=== PATIENT | male | born 1995 | race Caucasian/White ===

== ENCOUNTER 2018-01-06 13:43 | Emergency (ER) | payer BC ==
[2018-01-06 13:46] VITALS: BP 146/92
--- NOTE | 2018-01-06 13:48 | ER Report ---
History and Physical Time Seen By MD: 13:47 HPI/ROS CHIEF COMPLAINT: Depression, suicidal ideation HISTORY OF PRESENT ILLNESS: Patient is a 22-year-old male here with complaints of depression which has been worsening over the past week. He is being treated in the outpatient setting with Lamictal, Effexor, Abilify. He reportedly started Effexor last week and was taken off of Zoloft. He has been admitted in the inpatient setting in the past for similar complaints of suicidal ideation and prior attempts with hanging and cutting. He reports that the last time that he was admitted was in [place]. Patient denies alcohol or drug use. Denies significant recent life stressors. REVIEW OF SYSTEMS: Constitutional: No fever, no chills. Eyes: No discharge. ENT: No sore throat. Cardiovascular: No chest pain, no palpitations. Respiratory: No cough, no shortness of breath. Gastrointestinal: No abdominal pain, no vomiting. Genitourinary: No hematuria. Musculoskeletal: No back pain. Skin: No rashes. Neurological: No headache. Psych: SI, Depression, denies HI Allergies: Coded Allergies: No Known Drug Allergies (Unverified , 01/06/18) Home Meds Reported Medications Cetirizine Hcl (ZYRTEC) 10 Mg Capsule, 10 MG PO QDAY, CAPSULE 01/06/18 Cholecalciferol (Vitamin D3) (VITAMIN D3) 1,000 Unit Tablet, 1000 UNIT PO DAILY, TAB 01/06/18 Multivitamin (ONCE DAILY) 1 Each Tablet, 1 EACH PO DAILY 01/06/18 Montelukast Sodium (SINGULAIR) 10 Mg Tablet, 1 TAB PO QDAY, TAB 01/06/18 Lamotrigine (LAMICTAL) 150 Mg Tablet, 150 MG PO DAILY 01/06/18 Aripiprazole (ABILIFY) 10 Mg Tablet, 10 MG PO QDAY, TAB 01/06/18 Venlafaxine Hcl (EFFEXOR XR) 37.5 Mg Cap.er.24h, 37.5 MG PO QDAY 01/06/18 Constitutional Vital Sign - Last 24 Hours 01/06/18 13:46 Temp 97.7 Pulse 78 Resp 16 B/P (MAP) 146/92 Pulse Ox 96 O2 Delivery Room Air Physical Exam General Appearance: The patient is alert, has no immediate need for airway protection and no signs of toxicity. No acute distress, depressed affect [Eyes:] [Pupils equal and round no pallor or injection.] [ENT, Mouth:] [Mucous membranes are moist.] Respiratory: [There are no retractions, lungs are clear to auscultation.] Cardiovascular: [Regular rate and rhythm.] [ ] Gastrointestinal: [Abdomen is soft and non tender, no masses, bowel sounds normal.] [Neurological:] [ ] [Skin:] [Warm and dry, no rashes.] [Musculoskeletal:] [Neck is supple non tender.] [Extremities are nontender, nonswollen and have full range of motion.] [ ] [DIFFERENTIAL DIAGNOSIS: After history and physical exam differential diagnosis was considered for] [ ] Medical Decision Making Data Points Result Diagram: 01/06/18 1403 01/06/18 1403 Laboratory Hematology Test 01/06/18 14:03 01/06/18 14:08 Red Blood Count 5.68 M/uL (4.00-5.60) Mean Corpuscular Volume 87.2 fL (80.0-96.0) Mean Corpuscular Hemoglobin 29.6 pg (26.0-33.0) Mean Corpuscular Hemoglobin Concent 33.9 g/dL (32.0-36.0) Red Cell Distribution Width 14.2 % (11.5-14.5) Mean Platelet Volume 7.3 fL (7.2-11.1) Neutrophils (%) (Auto) 63.3 % (39.4-72.5) Lymphocytes (%) (Auto) 27.5 % (17.6-49.6) Monocytes (%) (Auto) 5.7 % (4.1-12.4) Eosinophils (%) (Auto) 2.6 % (0.4-6.7) Basophils (%) (Auto) 0.9 % (0.3-1.4) Nucleated RBC Relative Count (auto) 0.0 /100WBC Neutrophils # (Auto) 2.9 K/uL (2.0-7.4) Lymphocytes # (Auto) 1.3 K/uL (1.3-3.6) Monocytes # (Auto) 0.3 K/uL (0.3-1.0) Eosinophils # (Auto) 0.1 K/uL (0.0-0.5) Basophils # (Auto) 0.0 K/uL (0.0-0.1) Nucleated RBC Absolute Count (auto) 0.00 K/uL Sodium Level 140 mmol/L (137-145) Potassium Level 3.7 mmol/L (3.5-5.0) Chloride Level 102 mmol/L (98-107) Carbon Dioxide Level 30 mmol/L (22-30) Blood Urea Nitrogen 16 mg/dl (9-21) Creatinine 1.00 mg/dl (0.66-1.25) Glomerular Filtration Rate Calc > 60.0 Random Glucose 95 mg/dl (75-110) Calcium Level 9.7 mg/dl (8.4-10.2) Magnesium Level 1.9 mg/dl (1.7-2.2) Total Bilirubin 0.3 mg/dl (0.2-1.3) Aspartate Amino Transf (AST/SGOT) 36 U/L (0-35) Alanine Aminotransferase (ALT/SGPT) 59 U/L (0-56) Alkaline Phosphatase 61 U/L (0-126) Total Protein 7.6 g/dl (6.3-8.2) Albumin 4.5 g/dl (3.5-5.0) Salicylates Level < 10 mg/L Salicylate Last Dose Date unknown Acetaminophen Level < 10 ug/ml Serum Alcohol < 10 mg/dl Chemistry Test 01/06/18 14:03 01/06/18 14:08 White Blood Count 4.5 k/uL (4.5-11.0) Red Blood Count 5.68 M/uL (4.00-5.60) Hemoglobin 16.8 g/dL (14.0-18.0) Hematocrit 49.6 % (42.0-52.0) Mean Corpuscular Volume 87.2 fL (80.0-96.0) Mean Corpuscular Hemoglobin 29.6 pg (26.0-33.0) Mean Corpuscular Hemoglobin Concent 33.9 g/dL (32.0-36.0) Red Cell Distribution Width 14.2 % (11.5-14.5) Platelet Count 224 K/uL (150-450) Mean Platelet Volume 7.3 fL (7.2-11.1) Neutrophils (%) (Auto) 63.3 % (39.4-72.5) Lymphocytes (%) (Auto) 27.5 % (17.6-49.6) Monocytes (%) (Auto) 5.7 % (4.1-12.4) Eosinophils (%) (Auto) 2.6 % (0.4-6.7) Basophils (%) (Auto) 0.9 % (0.3-1.4) Nucleated RBC Relative Count (auto) 0.0 /100WBC Neutrophils # (Auto) 2.9 K/uL (2.0-7.4) Lymphocytes # (Auto) 1.3 K/uL (1.3-3.6) Monocytes # (Auto) 0.3 K/uL (0.3-1.0) Eosinophils # (Auto) 0.1 K/uL (0.0-0.5) Basophils # (Auto) 0.0 K/uL (0.0-0.1) Nucleated RBC Absolute Count (auto) 0.00 K/uL Glomerular Filtration Rate Calc > 60.0 Calcium Level 9.7 mg/dl (8.4-10.2) Magnesium Level 1.9 mg/dl (1.7-2.2) Total Bilirubin 0.3 mg/dl (0.2-1.3) Aspartate Amino Transf (AST/SGOT) 36 U/L (0-35) Alanine Aminotransferase (ALT/SGPT) 59 U/L (0-56) Alkaline Phosphatase 61 U/L (0-126) Total Protein 7.6 g/dl (6.3-8.2) Albumin 4.5 g/dl (3.5-5.0) Salicylates Level < 10 mg/L Salicylate Last Dose Date unknown Acetaminophen Level < 10 ug/ml Serum Alcohol < 10 mg/dl Toxicology Test 01/06/18 14:03 01/06/18 14:08 Salicylates Level < 10 mg/L Salicylate Last Dose Date unknown Acetaminophen Level < 10 ug/ml Serum Alcohol < 10 mg/dl Urinalysis Test 01/06/18 14:08 ED Course/Re-evaluation ED Course Patient is a 22-year-old male here with complaints of depression, suicidal ideation without a plan. Patient has a long-standing history of depression and is currently being treated with Lamictal, Abilify and was recently switched to Effexor for depression. Patient was weaned off of Zoloft reportedly last week. He does have history of prior and patient admission in [place]. Tylenol and aspirin levels were negative, alcohol was negative. I discussed the patient with Dr. Garcia who accepted the patient to behavioral health services for voluntary admission. Decision to Disposition Date: Jan 06, 2018 Decision to Disposition Time: 14:29 Depart Departure Latest Vital Signs Vital Signs Date Time Temp Pulse Resp B/P (MAP) Pulse Ox O2 Delivery O2 Flow Rate FiO2 01/06/18 13:46 97.7 78 16 146/92 96 Room Air Impression: Primary Impression: Depression Additional Impression: Suicidal ideation Condition: Condition Unchanged Disposition: XFER TO [facility] Problem Qualifiers ZEESHAN PEGUERO DO Jan 06, 2018 13:47
[2018-01-06] MEDS ORDERED: MONT10TA PO (13:54)
[2018-01-06] MEDS ORDERED: MULT-1381 PO (13:54)
[2018-01-06] MEDS ORDERED: LAMOT150PT PO (13:54)
[2018-01-06] MEDS ORDERED: CHOL10005 PO (13:54)
[2018-01-06] MEDS ORDERED: VENL37.594 PO (13:54)
[2018-01-06] MEDS ORDERED: CETI10CA8 PO (13:54)
[2018-01-06] MEDS ORDERED: ARIP10TA4 PO (13:54)
[2018-01-06 14:09] LABS: PLATELET COUNT, AUTOMATED 224 K/uL (150-450)
--- NOTE | 2018-01-06 14:49 | ER Report ---
History and Physical Time Seen By MD: 14:46 Hx. of Stated Complaint: Patient wants admission to [facility] for depression and SI HPI/ROS See other history of present illness Allergies: Coded Allergies: No Known Drug Allergies (Unverified , 01/06/18) Home Meds Reported Medications Cetirizine Hcl (ZYRTEC) 10 Mg Capsule, 10 MG PO QDAY, CAPSULE 01/06/18 Cholecalciferol (Vitamin D3) (VITAMIN D3) 1,000 Unit Tablet, 1000 UNIT PO DAILY, TAB 01/06/18 Multivitamin (ONCE DAILY) 1 Each Tablet, 1 EACH PO DAILY 01/06/18 Montelukast Sodium (SINGULAIR) 10 Mg Tablet, 1 TAB PO QDAY, TAB 01/06/18 Lamotrigine (LAMICTAL) 150 Mg Tablet, 150 MG PO DAILY 01/06/18 Aripiprazole (ABILIFY) 10 Mg Tablet, 10 MG PO QDAY, TAB 01/06/18 Venlafaxine Hcl (EFFEXOR XR) 37.5 Mg Cap.er.24h, 37.5 MG PO QDAY 01/06/18 Hx Substance Use Disorder: No Hx Alcohol Use: No Constitutional Vital Signs Date Time Temp Pulse Resp B/P (MAP) Pulse Ox O2 Delivery O2 Flow Rate FiO2 01/06/18 13:46 97.7 78 16 146/92 96 Room Air Physical Exam See other note Medical Decision Making Data Points Result Diagram: 01/06/18 1403 01/06/18 1403 Laboratory Hematology Test 01/06/18 14:03 01/06/18 14:08 Red Blood Count 5.68 M/uL (4.00-5.60) Mean Corpuscular Volume 87.2 fL (80.0-96.0) Mean Corpuscular Hemoglobin 29.6 pg (26.0-33.0) Mean Corpuscular Hemoglobin Concent 33.9 g/dL (32.0-36.0) Red Cell Distribution Width 14.2 % (11.5-14.5) Mean Platelet Volume 7.3 fL (7.2-11.1) Neutrophils (%) (Auto) 63.3 % (39.4-72.5) Lymphocytes (%) (Auto) 27.5 % (17.6-49.6) Monocytes (%) (Auto) 5.7 % (4.1-12.4) Eosinophils (%) (Auto) 2.6 % (0.4-6.7) Basophils (%) (Auto) 0.9 % (0.3-1.4) Nucleated RBC Relative Count (auto) 0.0 /100WBC Neutrophils # (Auto) 2.9 K/uL (2.0-7.4) Lymphocytes # (Auto) 1.3 K/uL (1.3-3.6) Monocytes # (Auto) 0.3 K/uL (0.3-1.0) Eosinophils # (Auto) 0.1 K/uL (0.0-0.5) Basophils # (Auto) 0.0 K/uL (0.0-0.1) Nucleated RBC Absolute Count (auto) 0.00 K/uL Sodium Level 140 mmol/L (137-145) Potassium Level 3.7 mmol/L (3.5-5.0) Chloride Level 102 mmol/L (98-107) Carbon Dioxide Level 30 mmol/L (22-30) Blood Urea Nitrogen 16 mg/dl (9-21) Creatinine 1.00 mg/dl (0.66-1.25) Glomerular Filtration Rate Calc > 60.0 Random Glucose 95 mg/dl (75-110) Calcium Level 9.7 mg/dl (8.4-10.2) Magnesium Level 1.9 mg/dl (1.7-2.2) Total Bilirubin 0.3 mg/dl (0.2-1.3) Aspartate Amino Transf (AST/SGOT) 36 U/L (0-35) Alanine Aminotransferase (ALT/SGPT) 59 U/L (0-56) Alkaline Phosphatase 61 U/L (0-126) Total Protein 7.6 g/dl (6.3-8.2) Albumin 4.5 g/dl (3.5-5.0) Salicylates Level < 10 mg/L Salicylate Last Dose Date unknown Acetaminophen Level < 10 ug/ml Serum Alcohol < 10 mg/dl Urine Color Yellow Urine Clarity Clear Urine pH 7.0 pH (4.8-9.5) Urine Specific [place] 1.016 Urine Protein Negative mg/dL (NEGATIVE) Urine Glucose (UA) Negative mg/dL (NEGATIVE) Urine Ketones Negative mg/dL (NEGATIVE) Urine Blood Negative (NEGATIVE) Urine Nitrite Negative (NEGATIVE) Urine Bilirubin Negative (NEGATIVE) Urine Urobilinogen Negative mg/dL (0.2-1.9) Urine Leukocyte Esterase Negative (NEGATIVE) Urine RBC None /HPF (0-2/HPF) Urine WBC <1 /HPF (0-5/HPF) Urine Squamous Epithelial Cells None /LPF (</=FEW) Urine Bacteria Few /HPF (NONE-FEW) Urine Mucus Few /HPF (NONE-FEW) Urine Opiates Screen Negative Urine Barbiturates Screen Negative Ur Tricyclic Antidepressants Screen Negative Urine Phencyclidine Screen Negative Urine Amphetamines Screen Negative Urine Benzodiazepines Screen Negative Urine Cocaine Screen Negative Urine Cannabinoids Screen Negative Chemistry Test 01/06/18 14:03 01/06/18 14:08 White Blood Count 4.5 k/uL (4.5-11.0) Red Blood Count 5.68 M/uL (4.00-5.60) Hemoglobin 16.8 g/dL (14.0-18.0) Hematocrit 49.6 % (42.0-52.0) Mean Corpuscular Volume 87.2 fL (80.0-96.0) Mean Corpuscular Hemoglobin 29.6 pg (26.0-33.0) Mean Corpuscular Hemoglobin Concent 33.9 g/dL (32.0-36.0) Red Cell Distribution Width 14.2 % (11.5-14.5) Platelet Count 224 K/uL (150-450) Mean Platelet Volume 7.3 fL (7.2-11.1) Neutrophils (%) (Auto) 63.3 % (39.4-72.5) Lymphocytes (%) (Auto) 27.5 % (17.6-49.6) Monocytes (%) (Auto) 5.7 % (4.1-12.4) Eosinophils (%) (Auto) 2.6 % (0.4-6.7) Basophils (%) (Auto) 0.9 % (0.3-1.4) Nucleated RBC Relative Count (auto) 0.0 /100WBC Neutrophils # (Auto) 2.9 K/uL (2.0-7.4) Lymphocytes # (Auto) 1.3 K/uL (1.3-3.6) Monocytes # (Auto) 0.3 K/uL (0.3-1.0) Eosinophils # (Auto) 0.1 K/uL (0.0-0.5) Basophils # (Auto) 0.0 K/uL (0.0-0.1) Nucleated RBC Absolute Count (auto) 0.00 K/uL Glomerular Filtration Rate Calc > 60.0 Calcium Level 9.7 mg/dl (8.4-10.2) Magnesium Level 1.9 mg/dl (1.7-2.2) Total Bilirubin 0.3 mg/dl (0.2-1.3) Aspartate Amino Transf (AST/SGOT) 36 U/L (0-35) Alanine Aminotransferase (ALT/SGPT) 59 U/L (0-56) Alkaline Phosphatase 61 U/L (0-126) Total Protein 7.6 g/dl (6.3-8.2) Albumin 4.5 g/dl (3.5-5.0) Salicylates Level < 10 mg/L Salicylate Last Dose Date unknown Acetaminophen Level < 10 ug/ml Serum Alcohol < 10 mg/dl Urine Color Yellow Urine Clarity Clear Urine pH 7.0 pH (4.8-9.5) Urine Specific [place] 1.016 Urine Protein Negative mg/dL (NEGATIVE) Urine Glucose (UA) Negative mg/dL (NEGATIVE) Urine Ketones Negative mg/dL (NEGATIVE) Urine Blood Negative (NEGATIVE) Urine Nitrite Negative (NEGATIVE) Urine Bilirubin Negative (NEGATIVE) Urine Urobilinogen Negative mg/dL (0.2-1.9) Urine Leukocyte Esterase Negative (NEGATIVE) Urine RBC None /HPF (0-2/HPF) Urine WBC <1 /HPF (0-5/HPF) Urine Squamous Epithelial Cells None /LPF (</=FEW) Urine Bacteria Few /HPF (NONE-FEW) Urine Mucus Few /HPF (NONE-FEW) Urine Opiates Screen Negative Urine Barbiturates Screen Negative Ur Tricyclic Antidepressants Screen Negative Urine Phencyclidine Screen Negative Urine Amphetamines Screen Negative Urine Benzodiazepines Screen Negative Urine Cocaine Screen Negative Urine Cannabinoids Screen Negative Toxicology Test 01/06/18 14:03 01/06/18 14:08 Salicylates Level < 10 mg/L Salicylate Last Dose Date unknown Acetaminophen Level < 10 ug/ml Serum Alcohol < 10 mg/dl Urine Opiates Screen Negative Urine Barbiturates Screen Negative Ur Tricyclic Antidepressants Screen Negative Urine Phencyclidine Screen Negative Urine Amphetamines Screen Negative Urine Benzodiazepines Screen Negative Urine Cocaine Screen Negative Urine Cannabinoids Screen Negative Urinalysis Test 01/06/18 14:08 Urine Color Yellow Urine Clarity Clear Urine pH 7.0 pH (4.8-9.5) Urine Specific [place] 1.016 Urine Protein Negative mg/dL (NEGATIVE) Urine Glucose (UA) Negative mg/dL (NEGATIVE) Urine Ketones Negative mg/dL (NEGATIVE) Urine Blood Negative (NEGATIVE) Urine Nitrite Negative (NEGATIVE) Urine Bilirubin Negative (NEGATIVE) Urine Urobilinogen Negative mg/dL (0.2-1.9) Urine Leukocyte Esterase Negative (NEGATIVE) Urine RBC None /HPF (0-2/HPF) Urine WBC <1 /HPF (0-5/HPF) Urine Squamous Epithelial Cells None /LPF (</=FEW) Urine Bacteria Few /HPF (NONE-FEW) Urine Mucus Few /HPF (NONE-FEW) ED Course/Re-evaluation ED Course Patient is a 22-year-old male here with reports of thoughts of self-harm without a plan. Patient is of long-standing history of depression and recently changed medications from Zoloft to Effexor. Patient was initially given thinking of checking involuntarily however after further discussion, the patient and patient's grandmother contracted to safety and agreed to follow up closely in the outpatient setting. Patient agreed to return promptly if he developed a plan or recurrent thoughts of self-harm. Decision to Disposition Date: Jan 06, 2018 Decision to Disposition Time: 14:29 Depart Departure Latest Vital Signs Vital Signs Date Time Temp Pulse Resp B/P (MAP) Pulse Ox O2 Delivery O2 Flow Rate FiO2 01/06/18 13:46 97.7 78 16 146/92 96 Room Air Impression: Primary Impression: Depression Additional Impression: Suicidal ideation Condition: Improved Disposition: HOME OR SELF-CARE Patient Instructions: Depression (ED) Additional Instructions: Please return immediately if you develop recurrent thoughts of self-harm or plan to harm herself. Please continue your medications as prescribed and follow up closely with your outpatient therapist. Please call if you develops off of harming yourself. Problem Qualifiers ZEESHAN PEGUERO DO Jan 06, 2018 14:49
--- NOTE | 2018-01-06 14:59 | ER Report ---
History and Physical Time Seen By MD: 14:56 Hx. of Stated Complaint: Patient wants admission to [facility] for depression and SI HPI/ROS Please see other note Allergies: Coded Allergies: No Known Drug Allergies (Unverified , 01/06/18) Home Meds Reported Medications Cetirizine Hcl (ZYRTEC) 10 Mg Capsule, 10 MG PO QDAY, CAPSULE 01/06/18 Cholecalciferol (Vitamin D3) (VITAMIN D3) 1,000 Unit Tablet, 1000 UNIT PO DAILY, TAB 01/06/18 Multivitamin (ONCE DAILY) 1 Each Tablet, 1 EACH PO DAILY 01/06/18 Montelukast Sodium (SINGULAIR) 10 Mg Tablet, 1 TAB PO QDAY, TAB 01/06/18 Lamotrigine (LAMICTAL) 150 Mg Tablet, 150 MG PO DAILY 01/06/18 Aripiprazole (ABILIFY) 10 Mg Tablet, 10 MG PO QDAY, TAB 01/06/18 Venlafaxine Hcl (EFFEXOR XR) 37.5 Mg Cap.er.24h, 37.5 MG PO QDAY 01/06/18 Hx Substance Use Disorder: No Hx Alcohol Use: No Constitutional Vital Signs Date Time Temp Pulse Resp B/P (MAP) Pulse Ox O2 Delivery O2 Flow Rate FiO2 01/06/18 13:46 97.7 78 16 146/92 96 Room Air Physical Exam Please see other note Medical Decision Making Data Points Result Diagram: 01/06/18 1403 01/06/18 1403 Laboratory Hematology Test 01/06/18 14:03 01/06/18 14:08 Red Blood Count 5.68 M/uL (4.00-5.60) Mean Corpuscular Volume 87.2 fL (80.0-96.0) Mean Corpuscular Hemoglobin 29.6 pg (26.0-33.0) Mean Corpuscular Hemoglobin Concent 33.9 g/dL (32.0-36.0) Red Cell Distribution Width 14.2 % (11.5-14.5) Mean Platelet Volume 7.3 fL (7.2-11.1) Neutrophils (%) (Auto) 63.3 % (39.4-72.5) Lymphocytes (%) (Auto) 27.5 % (17.6-49.6) Monocytes (%) (Auto) 5.7 % (4.1-12.4) Eosinophils (%) (Auto) 2.6 % (0.4-6.7) Basophils (%) (Auto) 0.9 % (0.3-1.4) Nucleated RBC Relative Count (auto) 0.0 /100WBC Neutrophils # (Auto) 2.9 K/uL (2.0-7.4) Lymphocytes # (Auto) 1.3 K/uL (1.3-3.6) Monocytes # (Auto) 0.3 K/uL (0.3-1.0) Eosinophils # (Auto) 0.1 K/uL (0.0-0.5) Basophils # (Auto) 0.0 K/uL (0.0-0.1) Nucleated RBC Absolute Count (auto) 0.00 K/uL Sodium Level 140 mmol/L (137-145) Potassium Level 3.7 mmol/L (3.5-5.0) Chloride Level 102 mmol/L (98-107) Carbon Dioxide Level 30 mmol/L (22-30) Blood Urea Nitrogen 16 mg/dl (9-21) Creatinine 1.00 mg/dl (0.66-1.25) Glomerular Filtration Rate Calc > 60.0 Random Glucose 95 mg/dl (75-110) Calcium Level 9.7 mg/dl (8.4-10.2) Magnesium Level 1.9 mg/dl (1.7-2.2) Total Bilirubin 0.3 mg/dl (0.2-1.3) Aspartate Amino Transf (AST/SGOT) 36 U/L (0-35) Alanine Aminotransferase (ALT/SGPT) 59 U/L (0-56) Alkaline Phosphatase 61 U/L (0-126) Total Protein 7.6 g/dl (6.3-8.2) Albumin 4.5 g/dl (3.5-5.0) Thyroid Stimulating Hormone (TSH) 3.56 uIU/ml (0.46-4.68) Salicylates Level < 10 mg/L Salicylate Last Dose Date unknown Acetaminophen Level < 10 ug/ml Serum Alcohol < 10 mg/dl Urine Color Yellow Urine Clarity Clear Urine pH 7.0 pH (4.8-9.5) Urine Specific [place] 1.016 Urine Protein Negative mg/dL (NEGATIVE) Urine Glucose (UA) Negative mg/dL (NEGATIVE) Urine Ketones Negative mg/dL (NEGATIVE) Urine Blood Negative (NEGATIVE) Urine Nitrite Negative (NEGATIVE) Urine Bilirubin Negative (NEGATIVE) Urine Urobilinogen Negative mg/dL (0.2-1.9) Urine Leukocyte Esterase Negative (NEGATIVE) Urine RBC None /HPF (0-2/HPF) Urine WBC <1 /HPF (0-5/HPF) Urine Squamous Epithelial Cells None /LPF (</=FEW) Urine Bacteria Few /HPF (NONE-FEW) Urine Mucus Few /HPF (NONE-FEW) Urine Opiates Screen Negative Urine Barbiturates Screen Negative Ur Tricyclic Antidepressants Screen Negative Urine Phencyclidine Screen Negative Urine Amphetamines Screen Negative Urine Benzodiazepines Screen Negative Urine Cocaine Screen Negative Urine Cannabinoids Screen Negative Chemistry Test 01/06/18 14:03 01/06/18 14:08 White Blood Count 4.5 k/uL (4.5-11.0) Red Blood Count 5.68 M/uL (4.00-5.60) Hemoglobin 16.8 g/dL (14.0-18.0) Hematocrit 49.6 % (42.0-52.0) Mean Corpuscular Volume 87.2 fL (80.0-96.0) Mean Corpuscular Hemoglobin 29.6 pg (26.0-33.0) Mean Corpuscular Hemoglobin Concent 33.9 g/dL (32.0-36.0) Red Cell Distribution Width 14.2 % (11.5-14.5) Platelet Count 224 K/uL (150-450) Mean Platelet Volume 7.3 fL (7.2-11.1) Neutrophils (%) (Auto) 63.3 % (39.4-72.5) Lymphocytes (%) (Auto) 27.5 % (17.6-49.6) Monocytes (%) (Auto) 5.7 % (4.1-12.4) Eosinophils (%) (Auto) 2.6 % (0.4-6.7) Basophils (%) (Auto) 0.9 % (0.3-1.4) Nucleated RBC Relative Count (auto) 0.0 /100WBC Neutrophils # (Auto) 2.9 K/uL (2.0-7.4) Lymphocytes # (Auto) 1.3 K/uL (1.3-3.6) Monocytes # (Auto) 0.3 K/uL (0.3-1.0) Eosinophils # (Auto) 0.1 K/uL (0.0-0.5) Basophils # (Auto) 0.0 K/uL (0.0-0.1) Nucleated RBC Absolute Count (auto) 0.00 K/uL Glomerular Filtration Rate Calc > 60.0 Calcium Level 9.7 mg/dl (8.4-10.2) Magnesium Level 1.9 mg/dl (1.7-2.2) Total Bilirubin 0.3 mg/dl (0.2-1.3) Aspartate Amino Transf (AST/SGOT) 36 U/L (0-35) Alanine Aminotransferase (ALT/SGPT) 59 U/L (0-56) Alkaline Phosphatase 61 U/L (0-126) Total Protein 7.6 g/dl (6.3-8.2) Albumin 4.5 g/dl (3.5-5.0) Thyroid Stimulating Hormone (TSH) 3.56 uIU/ml (0.46-4.68) Salicylates Level < 10 mg/L Salicylate Last Dose Date unknown Acetaminophen Level < 10 ug/ml Serum Alcohol < 10 mg/dl Urine Color Yellow Urine Clarity Clear Urine pH 7.0 pH (4.8-9.5) Urine Specific [place] 1.016 Urine Protein Negative mg/dL (NEGATIVE) Urine Glucose (UA) Negative mg/dL (NEGATIVE) Urine Ketones Negative mg/dL (NEGATIVE) Urine Blood Negative (NEGATIVE) Urine Nitrite Negative (NEGATIVE) Urine Bilirubin Negative (NEGATIVE) Urine Urobilinogen Negative mg/dL (0.2-1.9) Urine Leukocyte Esterase Negative (NEGATIVE) Urine RBC None /HPF (0-2/HPF) Urine WBC <1 /HPF (0-5/HPF) Urine Squamous Epithelial Cells None /LPF (</=FEW) Urine Bacteria Few /HPF (NONE-FEW) Urine Mucus Few /HPF (NONE-FEW) Urine Opiates Screen Negative Urine Barbiturates Screen Negative Ur Tricyclic Antidepressants Screen Negative Urine Phencyclidine Screen Negative Urine Amphetamines Screen Negative Urine Benzodiazepines Screen Negative Urine Cocaine Screen Negative Urine Cannabinoids Screen Negative Toxicology Test 01/06/18 14:03 01/06/18 14:08 Salicylates Level < 10 mg/L Salicylate Last Dose Date unknown Acetaminophen Level < 10 ug/ml Serum Alcohol < 10 mg/dl Urine Opiates Screen Negative Urine Barbiturates Screen Negative Ur Tricyclic Antidepressants Screen Negative Urine Phencyclidine Screen Negative Urine Amphetamines Screen Negative Urine Benzodiazepines Screen Negative Urine Cocaine Screen Negative Urine Cannabinoids Screen Negative Urinalysis Test 01/06/18 14:08 Urine Color Yellow Urine Clarity Clear Urine pH 7.0 pH (4.8-9.5) Urine Specific [place] 1.016 Urine Protein Negative mg/dL (NEGATIVE) Urine Glucose (UA) Negative mg/dL (NEGATIVE) Urine Ketones Negative mg/dL (NEGATIVE) Urine Blood Negative (NEGATIVE) Urine Nitrite Negative (NEGATIVE) Urine Bilirubin Negative (NEGATIVE) Urine Urobilinogen Negative mg/dL (0.2-1.9) Urine Leukocyte Esterase Negative (NEGATIVE) Urine RBC None /HPF (0-2/HPF) Urine WBC <1 /HPF (0-5/HPF) Urine Squamous Epithelial Cells None /LPF (</=FEW) Urine Bacteria Few /HPF (NONE-FEW) Urine Mucus Few /HPF (NONE-FEW) ED Course/Re-evaluation ED Course Upon reevaluation of the patient after hearing that he was considering going home for outpatient treatment, the patient got in contact with his mother and came to the joint decision that it would be safer to bring him in for inpatient treatment since he was having intermittent thoughts of self-harm. I discussed further with the patient has thoughts that he did voice that he was concerned about going home. Decision was made to pursue inpatient treatment for psychiatric stabilization voluntarily. Decision to Disposition Date: Jan 06, 2018 Decision to Disposition Time: 14:29 Depart Departure Latest Vital Signs Vital Signs Date Time Temp Pulse Resp B/P (MAP) Pulse Ox O2 Delivery O2 Flow Rate FiO2 01/06/18 13:46 97.7 78 16 146/92 96 Room Air Impression: Primary Impression: Depression Additional Impression: Suicidal ideation Condition: Condition Unchanged Disposition: XFER TO [facility] Departure Forms: Medications Reconciliation, Patient Portal Information, ER Transition Record Patient Instructions: Depression (ED) Problem Qualifiers ZEESHAN PEGUERO DO Jan 06, 2018 14:59
== END 2018-01-06 16:17 ==
LOC: ER 14:21
DX: F32.9 Major depressive disorder, single episode, unspecified (principal); R45.851 Suicidal ideations
CPT/HCPCS: 80305; 80320; 80329; 81001; 82040; 82247; 82310; 82374; 82435; 82565; 82947; 83735; 84075; 84132; 84155; 84295; 84443; 84450; 84460; 84520; 85025; 99284

== ENCOUNTER 2018-01-06 15:22 | Inpatient (IN) | payer BC ==
[~2018-01-06] VITALS: Ht 152.4 cm; Wt 79.4 kg
[~2018-01-06 15:22] MED LIST: ARIP10TA4 PO; CETI10CA8 PO; CHOL10005 PO; LAMOT150PT PO; MONT10TA PO; MULT-1381 PO; VENL37.594 PO
[2018-01-06] MEDS ORDERED: ACETAMINOPHEN 325 MG TAB PO PRN (17:25)
[2018-01-06] MEDS ORDERED: MAG HYD/AL HYD/SIMETH 30ML UDC PO PRN (17:25)
[2018-01-06 18:00] VITALS: BP 112/80
[2018-01-07 04:55] VITALS: BP 114/73
[2018-01-07] MEDS: CHOLECALCIFEROL 1000 UNIT TAB PO SCH (08:34)
[2018-01-07] MEDS: CETIRIZINE HCL 10 MG TAB PO SCH (08:34)
[2018-01-07] MEDS: MULTIVITAMINS PO SCH (08:34)
[2018-01-07] MEDS: MONTELUKAST SODIUM 10 MG TAB PO SCH (08:34)
[2018-01-07] MEDS: lamoTRIgine 100 MG TAB PO SCH (08:36)
[2018-01-07] MEDS ORDERED: FOLIC ACID 1 MG TAB PO SCH (09:00)
[2018-01-07] MEDS ORDERED: THIAMINE HCL 100 MG TAB PO SCH (09:00)
[2018-01-07 10:49] VITALS: BP 110/76
[2018-01-07] MEDS: ARIPiprazole 10 MG TAB PO SCH (10:55)
[2018-01-07] MEDS: OMEGA-3 500 MG CAP PO SCH (10:55)
[2018-01-07] MEDS: buPROPion SR 150 MG TABCR PO SCH (10:55)
[2018-01-08 06:35] VITALS: BP 120/70
[2018-01-08] MEDS: ARIPiprazole 10 MG TAB PO SCH (08:21)
[2018-01-08] MEDS: OMEGA-3 500 MG CAP PO SCH (08:21)
[2018-01-08] MEDS: CETIRIZINE HCL 10 MG TAB PO SCH (08:22)
[2018-01-08] MEDS: CHOLECALCIFEROL 1000 UNIT TAB PO SCH (08:22)
[2018-01-08] MEDS: MONTELUKAST SODIUM 10 MG TAB PO SCH (08:22)
[2018-01-08] MEDS: lamoTRIgine 100 MG TAB PO SCH (08:22)
[2018-01-08] MEDS: buPROPion SR 150 MG TABCR PO SCH ×2 (08:22→12:46)
[2018-01-08] MEDS: MULTIVITAMINS PO SCH (08:22)
--- NOTE | 2018-01-08 11:45 | SCHAAF H&P ---
DATE OF ADMISSION: January 06, 2018 ATTENDING PHYSICIAN Mayo Aldridge MD The patient was seen on the January 07, 2018 at approximately 14:00 hours for note concerning this dictation. PRESENTING PROBLEM, CHIEF COMPLAINT The patient voluntarily coming to the emergency room with increasing depression and suicidal thoughts. HISTORY OF PRESENT ILLNESS This is very polite 22-year-old male who was admitted without incident stating that during initial interview that his depression and suicidal thoughts had become more intense lately with no specific plan. When asked about specific stressors, the patient reports "I am stressed out about not having a career path chosen". The patient reports also he is still stressed over a break up with his fiance 3 weeks before their wedding last July. The patient reports this bothers him now specifically as she is in a romantic relationship with another person at this time. When asked about depressive symptoms over all, the patient reports that he has a history of diagnosis concerning major depression with ongoing significant depression and multiple hospitalizations through the years. The patient reports his mood remains low. The patient reports he probably gets too much sleep and patient feels his energy is low especially for the past few weeks. The patient reports his concentration may be down. He does report having interest in activities that are ongoing and patient reports guilt and remorse over relationship failures and wishes he had more friends. The patient feels he loses close friends easily and he feels he is sensitive in nature. The patient quickly stating he would like "my depression to be gone" if a miracle were to occur. The patient denying any symptoms of chantelle, psychosis. He reports rare panic like symptoms throughout his life. He denies PTSD, phobias, OCD. The patient has a history of cutting to the chest and upper body starting around 18 years old. The patient reported this continued for about 2 years. He no longer engages in this behavior. The patient reports having GI distress in relation to somatization symptoms when under stress. MENTAL HEALTH HISTORY The patient reports that his first hospitalization was when he was a freshman in high school. His last hospitalization believed to be in 2017 in [place]. He reports a total of 5 hospitalizations for suicidal thoughts and depressive concerns. The patient currently diagnosed with major depression, recurrent without psychotic features. The patient currently seeing Aylin Hoffman for medications. 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 The patient sees a counselor last 3 months as well in the [facility]. The patient reports suicide attempts at least "One or two" secondary to hanging in the past. FAMILY PSYCHIATRIC HISTORY The patient reports that his mother suffers from depression. His grandmother on his mother's side suffers from depression. His brother may have depression as well and multiple cousins and uncles on mother's side. There are no suicides in the family that the patient is aware of. PAST MEDICAL HISTORY The patient reports overall good health now. He has seasonal allergies. Denies any other medical concerns. SOCIAL HISTORY The patient was born in [place], [place] and raised mostly in [place], [place]. His parents were at the time of his and still are. He is the oldest of four. The patient reports a good GPA in high school around 3.75 and currently has an undeclared major at the [employer]. The patient has obtained an associates degree and continues to have an interest in taoism studies and psychology at the [employer]. However, he is not doing well and is considering dropping out of school at the end of this semester. The patient has never . He has no children. He considers himself heterosexual. Recent break up after a significant relationship with a fiance occurred in July of this year just prior to their wedding date. The patient is not in relationship with a significant other at this time. LEGAL HISTORY The patient denies any legal history now or in the past. SUBSTANCE ABUSE HISTORY Denies any substance abuse history of any kind. PHYSICAL EXAMINATION Please see emergency room note. Notable for depressed appearing 22-year-old male in no acute distress. Vital signs at the time of admission: Temperature 97.7, pulse 78, respiratory rate 16, blood pressure 146/92 and pulse oximetry 96% on room air. LABORATORY DATA CBC unremarkable. CMP notable for mild elevation in AST 36 and mildly elevated ALT 59 likely related to prescribed medications. TSH 3.56 in normal range. Urinalysis unremarkable. Toxicology screen negative with a nondetectable serum alcohol level. Free T4 and Free T3 pending in this patient whose both sides of his family have a history of thyroid cancer. MENTAL STATUS EXAMINATION GENERAL APPEARANCE, BEHAVIOR AND ATTITUDE: This is a very polite, cooperative 22-year-old male indicating significant depression but interacting appropriately and laughing at times appropriately with staff members. The patient nontearful, no bizarre mannerisms or ticks. No psychomotor agitation or retardation. SPEECH: Within normal limits. Regular rate, rhythm, volume and tone. MOOD: Described as depressed. AFFECT: Minimally constricted and mood-congruent. THOUGHT PROCESSES: Logical and goal-directed, no loose associations or flight of ideas. THOUGHT CONTENT: Free of auditory or visual hallucinations, ideas of reference, thought broadcastings, delusions, obsessions or compulsions. The patient continues to have mild suicidal thoughts with no specific plan. Denying homicidal ideations. SENSORIUM: Clear. COGNITION: Alert and oriented to person, place, time and situation. MEMORY: Immediate, recent and remote estimated intact. INTELLIGENCE: Average, based on interview. INSIGHT AND JUDGMENT: Considered grossly intact. The patient having recurrence of depressive symptoms combined with social stressors, but presenting voluntarily to the emergency room for help. ASSESSMENT This is a polite 22-year-old male who has had multiple hospitalizations and carries a diagnosis of major depression. The patient currently following up here in [place]. Medication changes were being made in an attempt to stimulate the patient. The patient also known to have gene testing concerning response to psychiatric medications through Aylin Hoffman as well. At this time, will attempt to use Wellbutrin to increase energy levels in this psychomotor retarded patient prior to advancing to amphetamines which may be considered by outpatient provider. The patient has a strong family history of depression symptoms, particularly through his mother's side and patient also noted to have a strong history of thyroid carcinoma on both sides of the family. DIAGNOSES PER DSM-V 1. Major depression, recurrent without psychotic features. 2. Social and educational stressors at this time. 3. The patient having a very supportive relationship with family. PLAN 1. Will admit to the unit. 2. Necessary precautions will be implemented. 3. The patient will participate in individual and group therapy. 4. Medications will be adjusted and titrated accordingly. 5. Collateral information to be obtained as necessary. 6. Estimated length of stay 3-5 days. MTDD
--- NOTE | 2018-01-08 12:27 | BHS Progress Note ---
[facility] - Subjective Progress Notes Subjective Patient reports no suicidal ideation today, and improved mood. Will continue treatment with likely discharge tomorrow. Will increase Wellbutrin today in this patient with recurrent hospitalizations. Patient denies any other symptoms today, no para-suicidal ideation. Suicidal Ideation: None Homicidal Ideation: None [facility] - Objective Physical Exam Vital Signs Vital Signs Date Time Temp Pulse Resp B/P (MAP) Pulse Ox O2 Delivery O2 Flow Rate FiO2 01/08/18 06:35 97.1 120/70 (87) 98 Room Air 01/07/18 10:49 78 01/07/18 04:55 15 Muscle Strength and Tone: WNL Gait and Station: Steady [facility] Medications Reviewed: Side Effects, Benefits of Medication, Risks Allergies Reviewed: Yes Mental Status Exam General Appearance: Casual, Well Groomed, Good Eye Contact, Cooperative, Polite, Good Interaction; No Unkept, No Tearful, No Psychomotor Agitation, No Psychomotor Retardation, No Bizarre Mannerisms, No Tics Speech: Clear, Spontaneous, Normal Rate, Normal Rhythm, Normal Volume, Normal Tone Mood: Dysthmic/Depressed (improving) Affect: Full and Appropriate, Calm; No Withdrawn, No Tearful, No Anxious, No Agitated Thought Process: Organized, Logical, Goal Directed; No Loose Associations, No Flight of Ideas Thought Content: Suicidal Ideation (resolved); No Homicidal Ideation, No Delusions, No Auditory Halllucinations, No Visual Hallucinations, No Thought Broadcasting, No Ideas of Reference, No Obsessions, No Compulsions Sensorium: Clear Cognition: Alert & Oriented-Person, Alert & Oriented-Place, Alert & Oriented- Time, Bjyap-Pnirpceu-Akdvblkrs Memory: Immediate, Recent, Remote Intelligence: Average Insight Judgment: Fair (improved) [facility] Assessment and Plan Fkev-ef-Byfz Encounter Date: Jan 08, 2018 Rekx-yf-Wuxy Encounter Time: 11:30 [facility] Plan: Necessary Precautions, Individual/Group Therapy, Admin/Titrate Meds, Educate Patient Tobacco Medications: Not Appropriate Condition Multpiple Antipsychotics Used: No Problems: (1) Major depression, recurrent Status: Chronic Condition 1. will continue treatment. 2. increase Wellbutrin. Problem Qualifiers (1) Major depression, recurrent: Active/Remission status: currently active Major depression episode severity: moderate Qualified Codes: F33.1 - Major depressive disorder, recurrent, moderate PAMELA BACON MD Jan 08, 2018 12:27
[2018-01-08 12:40] VITALS: BP 110/70
[2018-01-08 20:58] VITALS: BP 124/85
[2018-01-09 06:57] VITALS: BP 100/60
[2018-01-09] MEDS: buPROPion SR 150 MG TABCR PO SCH (08:18)
[2018-01-09] MEDS: OMEGA-3 500 MG CAP PO SCH (08:18)
[2018-01-09] MEDS: MONTELUKAST SODIUM 10 MG TAB PO SCH (08:18)
[2018-01-09] MEDS: ARIPiprazole 10 MG TAB PO SCH (08:18)
[2018-01-09] MEDS: CHOLECALCIFEROL 1000 UNIT TAB PO SCH (08:18)
[2018-01-09] MEDS: CETIRIZINE HCL 10 MG TAB PO SCH (08:18)
[2018-01-09] MEDS: MULTIVITAMINS PO SCH (08:18)
[2018-01-09] MEDS: lamoTRIgine 100 MG TAB PO SCH (08:18)
[2018-01-09] MEDS ORDERED: OMEG-23 PO (10:06)
[2018-01-09 10:07] VITALS: BP 112/68
[2018-01-09] MEDS ORDERED: BUPR-126 PO (10:07)
--- NOTE | 2018-01-11 03:39 | SCHAAF DISCHARGE ---
DATE OF ADMISSION: January 06, 2018 DATE OF DISCHARGE: January 09, 2018 ATTENDING PHYSICIAN Mayo Aldridge MD Patient was seen at approximately 0900 hours on 09 January 2018 for note concerning this dictation. FINAL DIAGNOSES 1. Major depression, recurrent, moderate in nature; rule out mood disorder secondary to obstructive sleep apnea. 2. Social and educational stressors. Patient having very supportive family as well. REASON FOR ADMISSION This is a very pleasant 22-year-old male who was admitted on a voluntary basis for a significant increase in depressive symptoms and suicidal thoughts. Patient has had multiple admissions under similar circumstances. Patient also able to identify multiple identifiable circumstances at this time as well. Patient in the process of being followed closely by Aylin Hoffman for medication management. Genetic testing has been done for response to medications, and some changes were being pursued at time of admission, including the possibility of starting Vyvanse for what appears to be a psychomotor-retarded depression in this [id number] patient. Patient responded to Wellbutrin instead of going to amphetamines at this time. Overnight pulse ox was indicative of potential sleep apnea. Sleep study was ordered, and it is scheduled. Patient continued to improve and notably took a very active role in his treatment, interacting very well with staff, other patients, and family during his stay. Suicidal ideation quickly resolved. No parasuicidal behaviors were seen. Patient discharged to home. PHYSICAL EXAMINATION Please see emergency room note. Vital signs at the time of admission notable for temperature 97.7, 78, respiratory rate 16, blood pressure 146/92, and pulse oximetry 96% on room air. At the time of discharge from Behavioral Health Unit, vital signs showed temperature 99.0, pulse 98, respiratory rate 16, blood pressure 112/68, and pulse oximetry 97% on room air. LABORATORY DATA Free T4 noted to be 0.89, in low-normal range, and free T3 also in low-normal range at 2.9. TSH notably at 3.56, within normal range. AST and ALT mildly elevated at time of admission, with 36 and 59 respectively. Otherwise unremarkable CMP. Unremarkable CBC as well. Urinalysis unremarkable. Toxicology screen negative, with nondetectable alcohol level. MENTAL STATUS EXAMINATION GENERAL APPEARANCE, BEHAVIOR AND ATTITUDE: At time of discharge, this is a polite, cooperative 22-year-old male making good eye contact. No periods of tearfulness. No bizarre mannerisms or tics. No psychomotor agitation or retardation. SPEECH: Within normal limits. Regular rate, rhythm, volume and tone. MOOD: Described as improved. AFFECT: Full and bright. THOUGHT PROCESSES: Logical and goal-directed; no loose associations or flight of ideas. THOUGHT CONTENT: Free of auditory or visual hallucinations, ideas of reference, thought broadcastings, delusions, obsessions or compulsions. Negative for any suicidal or homicidal ideation. SENSORIUM: Clear. COGNITION: Alert and oriented to person, place, time and situation. MEMORY: Immediate, recent and remote estimated intact. INTELLIGENCE: Average, based on interview. INSIGHT AND JUDGMENT: Grossly intact and appropriate for ongoing care. . RESULTS OF TESTING Imaging: None. Laboratory data: See above. CONSULTATIONS None. TREATMENT Patient received medications, participated in individual and group therapy. HOSPITAL COURSE Patient took an active role in his treatment. Patient indicating along the way multiple environmental stressors were identifiable, including difficulty with educational attainments in school at this time, relatively recent breakup with fiancee that bothers him as well. Patient having potential sleep apnea. Notably, his mother suffers from this condition. Needs further evaluation. Patient did seem to respond to Wellbutrin and therapy, however, and this patient has a long history of depressive symptoms. CONDITION OF PATIENT ON DISCHARGE Stable. Considered a minimal risk to himself or others and appropriate for outpatient care. DISPOSITION The patient was discharged to home. Would follow up with outpatient services as scheduled. Discharge medications included Lamictal 100 mg twice daily; fish oil 1000 mg daily; Abilify 10 mg every morning; Singulair 10 mg daily; multivitamin with minerals daily; vitamin D3 1000 international units daily; Wellbutrin SR 150 mg at a.m. and 150 mg at lunch; Zyrtec 10 mg daily as well. Patient would stop Effexor XR 37.5 mg, which was recently started at home, and patient would not take Vyvanse at this point until further evaluation and to see if response from Wellbutrin can be achieved. Again, patient would follow up with sleep study as scheduled, and crisis line was given should symptoms return. The risks, benefits and alternatives of the above discharge plan were discussed. Informed consent was given to proceed with the above discharge plan by this competent patient. Patient's family present at time of discharge. BERNA
== END 2018-01-09 10:30 | disposition home or self-care (01) | DRG 885 ==
LOC: BHS 15:22
PROVIDERS: ADMIT Psychiatry & Neurology Psychiatry; ATTEND Psychiatry & Neurology Psychiatry
DX: F33.1 Major depressive disorder, recurrent, moderate (principal); R45.851 Suicidal ideations; G47.30 Sleep apnea, unspecified; Z91.5 Personal history of self-harm; Z63.5 Disruption of family by separation and divorce; Z73.3 Stress, not elsewhere classified; Z55.8 Other problems related to education and literacy; Z81.8 Family history of other mental and behavioral disorders
CPT/HCPCS: 36415; 84439; 84481